=== PATIENT | female | born 1945 | race Caucasian/White ===

== ENCOUNTER 2018-04-08 11:08 | Day surgery (SDC) | payer MEDICARE, OTHER, SELFPAY ==
--- NOTE | 2018-04-07 17:21 | PM.PREOP ---
Pre-operative Note Interval Note Pre-op Check: Yes History & Physical Reviewed by Physician Changes: No
--- NOTE | 2018-04-07 17:22 | P.OP_ITS ---
Operative Date/Time/Diagnoses Date of procedure: 04/08/18 Time of procedure: 13:00 Procedure & Clinicians Procedure: Date of service: April 08, 2018 Preoperative diagnoses:1. Bilateral upper lid dermatochalasis , functional dear Postoperative diagnoses: 1. Bilateral upper lid dermatochalasis .Procedure: Bilateral upper blepharoplastySurgeon: Haylee Gonsalez MD Complications: None Specimen: NoneBlood loss: Less than 3 mL Anesthesia: Local infiltration with monitored standby.Anesthesiologist: Pradeep Fine M.D.Indications: Bilateral upper lids obstructing superior vision. Preoperative external photographs taken and loss of vision to within 2 mm of marginal light reflex. Functional surgery.Procedure: In the preoperative holding area the amount skin and subcutaneous tissue to be removed was marked with indelible ink. The contours were carefully checked for symmetry and planned procedure discussed with the patient.The patient was taken to the operating room. IV sedation was given. Proparacaine drops were placed in both eyes for comfort. Local infiltration of anesthetic 2.5 cc into each upper lid, consisting of 1% xylocaine with epinephrine, normal saline and 1 cc hyluronidase was placed. This was then supplemented with full strength 2% xylocaine with epinephrine, 0.5% bupivacaine , and 1 cc hyalurondase. The face was prepped in an open manner.Attention was placed to the right upper lid. Using the previous bhardwaj a number 15. Bard- Shiv blade was used to incise a skin muscle flap. The flap was lifted and removed. Cautery was applied as needed. Contouring of the muscle belly was also performed. Exploration of the nasal and preoperneurotic fat pads were performed removal and contouring with hemostat and scissors as well as cautery were performed. The lid was then closed with running and interrupted 6 0 Vicryl sutures.Same procedure was repeated for the left upper lid. The Betadine was removed. Maxitrol ointment was placed to suture line. She returned to recovery room in stable condition. Instructions for postoperative cold packs were reviewed.Haylee Gonsalez MD. Same procedure as scheduled: Yes
--- NOTE | 2018-04-08 07:47 | PM.PREOP ---
Pre-operative Note Interval Note Pre-op Check: Yes History & Physical Reviewed by Physician Changes: No
[2018-04-08 11:53] VITALS: BMI 29.6
[2018-04-08 12:04] VITALS: BP 135/83; PULSE 69; RESP 16; TEMP 36.1; O2SAT 97
[2018-04-08] MEDS: LACTATED RINGERS 1,000 ML 42 ML IV ×2 (14:08→15:02)
[2018-04-08] MEDS: PROPARACAINE 0.5% OPHTH SOL 2 DROPS EYE-BOTH (15:01)
[2018-04-08] MEDS: ERYTHROMYCIN OPHTH 1 GM OINT 1 APPLIC EYE-RIGHT (15:05)
[2018-04-08] MEDS: ERYTHROMYCIN OPHTH 1 GM OINT 1 APPLIC EYE-LEFT (15:05)
[2018-04-08] MEDS: LIDOCAINE 1% W/EPI 3 ML, SODIUM CHLORIDE 0.9% 2 ML, HYALURONIDASE 150 UNIT INJ (15:07)
[2018-04-08] MEDS: LIDOCAINE 2% W/EPI 3 ML, BUPIVACAINE 0.5% (PF) 2 ML, HYALURONIDASE 150 UNIT INJ (15:08)
[2018-04-08 16:35] VITALS: BP 125/75; PULSE 79; RESP 20; TEMP 36.2; O2SAT 93
[2018-04-08] MEDS: OXYCODONE/ACETAMINOPHEN 5/325 TABLET 1 TAB PO (16:49)
--- NOTE | 2018-04-08 17:12 | PM.OP.1 ---
Operative Date/Time/Diagnoses Date of procedure: 04/08/18 Time of procedure: 14:00 Pre-op diagnosis: Bilateral lower lid dermatochalasis with herniated fat pads. Date of service April 08, 2018 Procedure: Cosmetic lower lid blepharoplasty bilateral. Complication: None Blood loss: Less than 3 cc. Specimen: None Anesthesia: Local with monitored standby. Anesthesiologist: Pradeep Gonzalez MD. Postop diagnoses: Status post bilateral lower lid blepharoplasty. Patient was taken to the operating room after marking the intended amount of herniated fat pads and skin to be removed from lower lid. She was taken to the operating room. Given local anesthetic infiltration of the lower lids under IV sedation. Proparacaine drops were placed in the eye. A subciliary incision was made with a 15 to the right lower lid. Bard-Shiv blade. Blunt dissection was made to expose the lower orbital septum. Exposure of the medial nasal and temporal fat pads were each sequentially made and they were removed using hemostasis with a hemostat as well as cutting cautery there was minimal good contour resulted. A small amount of skin was removed from the lateral 1/2 of the eyelid. Punctal dilation was performed and the punctum was patent. There was no significant lateral laxity and no canthotomy was performed. The lower lid was then closed with running 6 0 Vicryl suture. Procedure was then repeated the identical fashion to the left lower lid. Small amount of additional IV sedation and local anesthetic were given as needed for pain control. She returned to recovery room in stable condition with instructions on how to perform cold compresses as well as minimal amount of pain medication for the 1st night after surgery. Postop appointments are given to patient in the office.
--- NOTE | 2018-04-08 17:21 | SUR.PHASEII ---
1721: Pt d/c'd to home. Dressed and stable on feet. No nausea and has tolerated fluids. is at bedside and Pt is stable and has met discharge criteria. Instructions reviewed, Pt has d/c appointments with Dr Gonsalez and all questions were answered.
== END 2018-04-08 17:23 | disposition home or self-care (01) ==
LOC: OR 11:17
PROVIDERS: PCP Family Medicine; Visit Provider Ophthalmology
PROC: (CPT 15823; principal; 2018-04-08 12:45)
PROC: (CPT 15823; 2018-04-08 12:45)
DX: H02.831 Dermatochalasis of right upper eyelid (principal); H02.834 Dermatochalasis of left upper eyelid; I10 Essential (primary) hypertension; E78.5 Hyperlipidemia, unspecified; G43.909 Migraine, unspecified, not intractable, without status migrainosus; I49.9 Cardiac arrhythmia, unspecified
CPT/HCPCS: 15823; J2250; J3010; J3470